=== PATIENT | male | born 1960 | race African-American/Black ===

== ENCOUNTER 2019-09-08 11:22 | Emergency (ER) | payer OTHER ==
[~2019-09-08] VITALS: Ht 172.7 cm; Wt 76.7 kg
[2019-09-08 11:38] VITALS: BP 119/79
== END 2019-09-08 13:16 | disposition home or self-care (01) ==
LOC: ER 11:22
DX: J20.9 Acute bronchitis, unspecified (principal); E78.5 Hyperlipidemia, unspecified; I10 Essential (primary) hypertension; F17.210 Nicotine dependence, cigarettes, uncomplicated
CPT/HCPCS: 71046; 93005